=== PATIENT | female | born 1990 | race Caucasian/White ===

== ENCOUNTER 2018-04-02 01:50 | Emergency (ER) | payer OTHER ==
[~2018-04-02] VITALS: Ht 154.9 cm; Wt 65.3 kg
[2018-04-02 02:07] LABS: URINE BILIRUBIN NEGATIVE (Negative); URINE BLOOD NEGATIVE (Negative); URINE CLARITY CLEAR; URINE COLOR YELLOW; URINE GLUCOSE-RANDOM* NEGATIVE (Negative); URINE KETONES NEGATIVE (Negative); URINE NITRITE-REFLEX NEGATIVE (Negative); URINE PROTEIN (DIPSTICK) NEGATIVE (Negative); URINE SPECIFIC GRAVITY 1.015 (1.005-1.035); URINE UROBILINOGEN 0.2 E.U./dl (0.2-1.0)
[2018-04-02 02:08] LABS: URINE LEUKOCYTES-REFLEX 1+ (Negative)
[2018-04-02] MEDS ORDERED: PRENATAL PO (02:08)
[2018-04-02 02:16] LABS: CASTS None Seen /LPF (None Seen); CRYSTALS None Seen /LPF (None Seen); MUCUS 0-3 Light strn/LPF (None Seen); SQUAMOUS 0-3 Few /LPF (0-3); URINE RBC None Seen /HPF (0-2); URINE WBC-REFLEX 6-15 Few /HPF (0-5)
[2018-04-02 03:10] LABS: HEMATOCRIT 35.4 % (37.0-47.0); HEMOGLOBIN 11.9 gm/dL (12.0-15.0); MCH 28.7 pg (26.0-34.0); MCHC 33.6 g/dL (28.0-37.0); MCV 85.4 fL (80.0-100.0); PLATELET COUNT 291 thou/uL (150-400); RBC 4.15 mil/uL (4.20-5.00); RDW 13.8 % (10.5-14.5); WBC 9.8 thou/uL (4.0-11.0)
[2018-04-02 03:13] LABS: CALCIUM 9.7 mg/dL (8.5-10.1); CREATININE 0.5 mg/dL (0.6-1.0)
[2018-04-02 03:37] LABS: ABSOLUTE NEUTROPHILS 7.4 thou/uL (1.4-8.2); METAMYELOCYTES 2 %; MYELOCYTES 1 %
[2018-04-02] MEDS ORDERED: KEFLEX500 M1 PO (04:11)
[2018-04-02 04:54] VITALS: BP 125/87
== END 2018-04-02 04:57 | disposition home or self-care (01) ==
LOC: ER 01:50
PROVIDERS: Emergency Medicine
DX: O23.40 Unspecified infection of urinary tract in pregnancy, unspecified trimester (principal); Z3A.00 Weeks of gestation of pregnancy not specified; Z88.8 Allergy status to other drugs, medicaments and biological substances